=== PATIENT | male | born 1995 ===

== ENCOUNTER 2022-08-06 10:28 | Outpatient (CLI) | payer OTHER | END 2022-08-06 10:30 | disposition home or self-care (01) | LOC: SONOGRAMA 10:28 | PROVIDERS: ATTEND Pathology Anatomic Pathology & Clinical Pathology | DX: C73 Malignant neoplasm of thyroid gland (principal); E04.1 Nontoxic single thyroid nodule ==

== ENCOUNTER 2022-11-29 13:19 | Outpatient (CLI) | payer OTHER | END 2022-11-29 13:21 | disposition home or self-care (01) | LOC: EDSEX 13:19 → SONOGRAMA 13:19 | PROVIDERS: ATTEND Pathology Anatomic Pathology & Clinical Pathology | DX: C73 Malignant neoplasm of thyroid gland (principal) ==